=== PATIENT | male | born 1995 | race Caucasian/White ===

== ENCOUNTER 2024-01-13 16:18 | Inpatient (IN) | payer MEDICAID ==
[~2024-01-13] VITALS: Ht 165.1 cm; Wt 60.0 kg
[2024-01-13 18:01] LABS: BASOPHILS # (AUTO) 0.1 X10'3 (0-0.2); BASOPHILS % (AUTO) 0.5 % (0-1); EOSINOPHILS % (AUTO) 0.2 % (0-6); HEMATOCRIT 39.1 % (42.0-52.0); HEMOGLOBIN 13.4 g/dl (14.0-17.9); LYMPHOCYTES # (AUTO) 1.8 X10'3 (1.1-4.8); LYMPHOCYTES % (AUTO) 17.4 % (21-51); MEAN CORPUSCULAR HEMOGLOBIN 31.5 PG (27.0-31.0); MEAN CORPUSCULAR HGB CONC 34.1 g/dL (33.0-36.5); MEAN CORPUSCULAR VOLUME 92.2 FL (78-98); MEAN PLATELET VOLUME 8.4 FL (7.4-10.4); MONOCYTES # (AUTO) 0.7 X10'3 (0-0.9); MONOCYTES % (AUTO) 6.4 % (2-12); NEUTROPHILS # (AUTO) 7.8 X10'3 (1.8-7.7); NEUTROPHILS % (AUTO) 75.5 % (42-75); PLATELET COUNT 283 X10'3 (140-440); RED BLOOD COUNT 4.24 X10'6 (4.70-6.10); RED CELL DISTRIBUTION WIDTH 13.3 % (11.5-14.5); WHITE BLOOD COUNT 10.3 X10'3 (4.5-11.0)
[2024-01-13 18:14] LABS: ALANINE AMINOTRANSFERASE 14 U/L (12-78); ALBUMIN 4.4 G/DL (3.4-5.0); ALBUMIN/GLOBULIN RATIO 1.6 (1.1-1.5); ALKALINE PHOSPHATASE 70 IU/L (46-116); ANION GAP 8 (8-16); ASPARTATE AMINO TRANSFERASE 15 U/L (10-37); BILIRUBIN,TOTAL 0.6 MG/DL (0.1-1.0); BLOOD UREA NITROGEN 9 MG/DL (7-18); BUN/CREATININE RATIO 10.2 (10.0-20.0); CALCIUM 8.8 MG/DL (8.5-10.1); CHLORIDE 104 MMOL/L (99-107); CREATININE 0.88 MG/DL (0.60-1.10); GLUCOSE 104 MG/DL (70-104); LIPASE 32 U/L (16-77); POTASSIUM 3.5 MMOL/L (3.5-5.1); SODIUM 139 MMOL/L (135-145); TOTAL CARBON DIOXIDE 27.4 MMOL/L (24-32); TOTAL PROTEIN 7.2 G/DL (6.4-8.2); eCRCL 106 ML/MIN; eGFR > 90 ML/MIN
[2024-01-13 18:18] LABS: BILIRUBIN,URINE NEGATIVE (Neg); CLARITY,URINE CLEAR (Clear); COLOR,URINE YELLOW (Yellow); GLUCOSE, URINE NEGATIVE (Neg); KETONES,URINE NEGATIVE (Neg); LEUKOCYTE ESTERASE ,URINE TRACE (Neg); NITRITES, URINE NEGATIVE (Neg); OCCULT BLOOD,URINE MODERATE (Neg); PH,URINE 5.5 (4.8-8.0); PROTEIN,URINE 30 mg/dl (Neg); UROBILINOGEN,URINE 0.2 E.U/dL (0.2-1.0)
[2024-01-13 18:22] LABS: UA COLLECTION TYPE CLN CATCH MIDSTREAM
[2024-01-13 18:32] LABS: WBC,URINE 30-50 /HPF (0-4)
[2024-01-13 18:33] LABS: BACTERIA,URINE FEW /HPF (Neg); MUCUS STRANDS FEW /LPF (Neg); SQUAMOUS EPITHELIAL CELL,UR FEW /LPF (FEW); WBC CLUMPS,URINE FEW /HPF (NEGATIVE)
[2024-01-13] MEDS: normal saline 1000ml 1,000 ML IV ONE (20:50)
[2024-01-13] MEDS: ketorolac trometh 15mg/ml vial 15 MG/ML ML IV ONE (20:51)
[2024-01-13] MEDS: CefTRIAXone 2gm/D5W 50ml BAG 50 ML IV ONE (21:59)
[2024-01-13] MEDS ORDERED: mag hydrox/Alum hydrox/simeth 30ml oral suspension PO PRN (23:55)
[2024-01-13] MEDS ORDERED: potassium Cl 40MEQ/1/2NS 520ml 520 ML IV PRN (23:55)
[2024-01-13] MEDS ORDERED: magnesium sulf-water 2g/50mL 50 ML IV PRN (23:55)
[2024-01-13] MEDS ORDERED: magnesium sulf-water 4G/100mL 100 ML IV PRN (23:55)
[2024-01-13] MEDS ORDERED: magnesium Cl slow-release 64mg tablet PO PRN (23:55)
[2024-01-13] MEDS ORDERED: magnesium hydroxide 30ml (MOM) UD suspension PO PRN (23:55)
[2024-01-13] MEDS ORDERED: potassium Cl 20 mEq SR tablet PO PRN ×2 (23:55)
[2024-01-13] MEDS ORDERED: acetaminophen 325mg tablet PO PRN (23:55)
[2024-01-14] VITALS (18 sets, daily range): BP systolic 88–112; BP diastolic 47–67; PULSE 53–78; RESP 12–25; TEMP 98–99.5; O2SAT 95–100
[2024-01-14] MEDS: normal saline 1000ml 1,000 ML IV SCH (00:34)
[2024-01-14 06:53] LABS: BASOPHILS # (AUTO) 0.1 X10'3 (0-0.2); BASOPHILS % (AUTO) 0.6 % (0-1); EOSINOPHILS % (AUTO) 0.1 % (0-6); HEMATOCRIT 39.2 % (42.0-52.0); HEMOGLOBIN 13.3 g/dl (14.0-17.9); LYMPHOCYTES # (AUTO) 1.7 X10'3 (1.1-4.8); LYMPHOCYTES % (AUTO) 19.3 % (21-51); MEAN CORPUSCULAR HEMOGLOBIN 31.5 PG (27.0-31.0); MEAN CORPUSCULAR HGB CONC 33.9 g/dL (33.0-36.5); MEAN CORPUSCULAR VOLUME 92.8 FL (78-98); MEAN PLATELET VOLUME 8.3 FL (7.4-10.4); MONOCYTES # (AUTO) 0.3 X10'3 (0-0.9); MONOCYTES % (AUTO) 3.4 % (2-12); NEUTROPHILS # (AUTO) 6.6 X10'3 (1.8-7.7); NEUTROPHILS % (AUTO) 76.6 % (42-75); PLATELET COUNT 283 X10'3 (140-440); RED BLOOD COUNT 4.23 X10'6 (4.70-6.10); RED CELL DISTRIBUTION WIDTH 13.9 % (11.5-14.5); WHITE BLOOD COUNT 8.6 X10'3 (4.5-11.0)
[2024-01-14 07:06] LABS: ANION GAP 6 (8-16); CHLORIDE 109 MMOL/L (99-107); GLUCOSE 106 MG/DL (70-104); POTASSIUM 4.2 MMOL/L (3.5-5.1); SODIUM 143 MMOL/L (135-145); TOTAL CARBON DIOXIDE 28.2 MMOL/L (24-32)
[2024-01-14 07:07] LABS: ALANINE AMINOTRANSFERASE 13 U/L (12-78); ALBUMIN 3.9 G/DL (3.4-5.0); ALBUMIN/GLOBULIN RATIO 1.3 (1.1-1.5); ALKALINE PHOSPHATASE 63 IU/L (46-116); ASPARTATE AMINO TRANSFERASE 15 U/L (10-37); BILIRUBIN,TOTAL 0.6 MG/DL (0.1-1.0); BLOOD UREA NITROGEN 5 MG/DL (7-18); BUN/CREATININE RATIO 6.5 (10.0-20.0); CALCIUM 8.6 MG/DL (8.5-10.1); CREATININE 0.77 MG/DL (0.60-1.10); MAGNESIUM 2.2 MG/DL (1.5-2.4); TOTAL PROTEIN 6.8 G/DL (6.4-8.2); eCRCL 121 ML/MIN; eGFR > 90 ML/MIN
[2024-01-14 07:15] LABS: PHOSPHORUS 2.9 MG/DL (2.3-4.5); URIC ACID 4.1 MG/DL (3.5-7.2)
[2024-01-14] MEDS: docusate sod 100mg capsule PO SCH (08:50)
[2024-01-14] MEDS: K and/or MAG REPLACEMENT MC SCH (08:54)
[2024-01-14] MEDS ORDERED: ondansetron/PF 4mg/2ml inj IV PRN (12:15)
[2024-01-14] MEDS ORDERED: meperidine/PF 25mg/ml syringe IV PRN (12:15)
[2024-01-14] MEDS ORDERED: morphine 4 MG/ML inj SYRINge IV PRN (12:15)
[2024-01-14] MEDS ORDERED: iohexol 300 MG/1 ML 50ml polymer ONE (12:15)
[2024-01-14] MEDS ORDERED: morphine 2 MG/ML inj. syringe IV PRN (12:15)
[2024-01-14] MEDS ORDERED: hydrALAZINE 20mg/ml inj. IV PRN (12:15)
[2024-01-14] MEDS: ringers solution, lacted 1,000 ML IV SCH (12:15)
[2024-01-14] MEDS ORDERED: labetalol 20mg/4ml (5mg/ml) syringe IV PRN (12:15)
[2024-01-14] MEDS ORDERED: HYDROmorphone/PF 0.2 MG/ML SYRINGE IV PRN ×2 (12:15)
[2024-01-14] MEDS ORDERED: fentaNYL/PF 50MCG/1 ML 2ML syringe ONE (12:21)
[2024-01-14] MEDS ORDERED: midazolam 1 mg/ML 2ml injection ONE (12:22)
[2024-01-14] MEDS ORDERED: ondansetron/PF 4mg/2ml inj ONE (12:34)
[2024-01-14] MEDS ORDERED: LIDOcaine 2% (20mg/ml) 5ml vial ONE (12:34)
[2024-01-14] MEDS ORDERED: dexamethasone sod phosphate 4mg/ml inj. ONE (12:34)
[2024-01-14] MEDS ORDERED: propofol inj 20 ML IV ONE ×2 (12:34)
[2024-01-14] MEDS: acetaminophen 1,000mg/100ml IV 100 ML IV ONE (13:45)
[2024-01-14] MEDS: HYDROcodone/acetaminophen 5mg/325mg tablet PO PRN (15:29)
[2024-01-14] MEDS: ondansetron/PF 4mg/2ml inj IV PRN (16:31)
[2024-01-14] MEDS: ketorolac trometh 15mg/ml vial 15 MG/ML ML IV ONE (16:33)
[2024-01-14] MEDS: metoclopramide 5 mg/ml inj IV ONE (17:20)
[2024-01-14] MEDS: morphine 2 MG/ML inj. syringe IV PRN (18:05)
[2024-01-14] MEDS ORDERED: ketorolac trometh 15mg/ml vial 15 MG/ML ML IV PRN (18:35)
[2024-01-14] MEDS: proCHLORperazine 10 MG/2 ml inj IV PRN (18:54)
[2024-01-14] MEDS: tamsulosin 0.4mg capsule PO SCH (22:06)
[2024-01-14] MEDS: CefTRIAXone/D5W-Rocephin 1gm 50 ML IV SCH (22:43)
[2024-01-15 06:00] VITALS: BP 102/53; PULSE 70; RESP 18; TEMP 98.4; O2SAT 98
[2024-01-15 06:14] LABS: BASOPHILS % (AUTO) 0.1 % (0-1); EOSINOPHILS % (AUTO) 0 % (0-6); HEMATOCRIT 35.5 % (42.0-52.0); LYMPHOCYTES # (AUTO) 1.3 X10'3 (1.1-4.8); LYMPHOCYTES % (AUTO) 10.8 % (21-51); MEAN CORPUSCULAR HEMOGLOBIN 31.5 PG (27.0-31.0); MEAN CORPUSCULAR HGB CONC 33.8 g/dL (33.0-36.5); MEAN CORPUSCULAR VOLUME 93.3 FL (78-98); MEAN PLATELET VOLUME 9.1 FL (7.4-10.4); MONOCYTES # (AUTO) 0.6 X10'3 (0-0.9); MONOCYTES % (AUTO) 4.8 % (2-12); NEUTROPHILS # (AUTO) 9.9 X10'3 (1.8-7.7); NEUTROPHILS % (AUTO) 84.3 % (42-75); PLATELET COUNT 261 X10'3 (140-440); RED BLOOD COUNT 3.81 X10'6 (4.70-6.10); WHITE BLOOD COUNT 11.7 X10'3 (4.5-11.0)
[2024-01-15 06:19] LABS: ALANINE AMINOTRANSFERASE 9 U/L (12-78); ALBUMIN 3.5 G/DL (3.4-5.0); ALBUMIN/GLOBULIN RATIO 1.3 (1.1-1.5); ALKALINE PHOSPHATASE 51 IU/L (46-116); ANION GAP 7 (8-16); ASPARTATE AMINO TRANSFERASE 11 U/L (10-37); BILIRUBIN,TOTAL 0.5 MG/DL (0.1-1.0); BLOOD UREA NITROGEN 11 MG/DL (7-18); BUN/CREATININE RATIO 14.1 (10.0-20.0); CALCIUM 8.3 MG/DL (8.5-10.1); CHLORIDE 107 MMOL/L (99-107); CREATININE 0.78 MG/DL (0.60-1.10); GLUCOSE 125 MG/DL (70-104); MAGNESIUM 1.9 MG/DL (1.5-2.4); POTASSIUM 4.2 MMOL/L (3.5-5.1); SODIUM 139 MMOL/L (135-145); TOTAL CARBON DIOXIDE 25.3 MMOL/L (24-32); TOTAL PROTEIN 6.1 G/DL (6.4-8.2); eCRCL 120 ML/MIN; eGFR > 90 ML/MIN
[2024-01-15 07:00] VITALS: RESP 18; O2SAT 98
[2024-01-15] MEDS ORDERED: tamsulosin capsule PO (12:09)
[2024-01-15] MEDS ORDERED: ONDA-243 PO (12:09)
[2024-01-15] MEDS ORDERED: IBUP-1985 PO (12:24)
[2024-01-15] MEDS ORDERED: PANT40TA54 PO (12:25)
== END 2024-01-15 12:54 | disposition home or self-care (01) | DRG 463 ==
LOC: ER 16:19 → UNDOADMIN 23:57 → ED HOLD 23:57 → ORTHO 4S 01-14 00:57 → ED HOLD 01-14 00:57 → SUR 3N 01-14 17:46 → ORTHO 4S 01-14 17:46 → UNDODISIN 01-15 12:54
PROVIDERS: ADMIT Internal Medicine Critical Care Medicine; ATTEND Family Medicine
PROC: BT1F1ZZ Fluoroscopy of Left Kidney, Ureter and Bladder using Low Osmolar Contrast (ICD-10-PCS; 2024-01-14)
PROC: 0T778DZ Dilation of Left Ureter with Intraluminal Device, Via Natural or Artificial Opening Endoscopic (ICD-10-PCS; principal; 2024-01-14 12:21)
DX: N13.6 Pyonephrosis (principal); Z79.899 Other long term (current) drug therapy
CPT/HCPCS: 36415; 74176; 76000; 80053; 81001; 82948; 83605; 83690; 83735; 84100; 84145; 84550; 85025; 85651; 87040; 87081; 87088; 96365; 96375; 99285; A4618; C1769; C2617; G0378; J0131; J0696; J0780; J1100; J1885; J2250; J2270; J2405; J2704; J2765; J3010; J3490; J7030; Q9967

== ENCOUNTER 2024-11-27 09:37 | Day surgery (SDC) | payer MEDICAID ==
[2024-11-20 12:52] LABS: MEAN PLATELET VOLUME 8.2 FL (7.4-10.4); PRE OP HEMATOCRIT 42.1 % (42.0-52.0); PRE OP HEMOGLOBIN 14.4 g/dL (14.0-17.9); PRE OP PLATELET COUNT 401 X10'3 (140-440); PRE OP WHITE BLOOD COUNT 8.2 10'3 (4.8-10.8); RED CELL DISTRIBUTION WIDTH 13.9 % (11.5-14.5)
[2024-11-20 13:00] LABS: CREATININE 0.70 MG/DL (0.60-1.10); PRE OP ALT 18 U/L (30-65); PRE OP ANION GAP 5 (8-16); PRE OP AST 17 U/L (10-37); PRE OP BILIRUB, TOTAL 0.4 MG/DL (0.0-1.0); PRE OP GLUCOSE 68 MG/DL (70-104); PRE OP POTASSIUM 4.5 MMOL/L (3.4-5.1); PRE OP SODIUM 139 MMOL/L (135-145); TOTAL CARBON DIOXIDE 34.2 MMOL/L (24-32); eGFR > 90 ML/MIN
[2024-11-27] VITALS (11 sets, daily range): BP systolic 84–119; BP diastolic 41–74; PULSE 53–76; RESP 14–27; TEMP 98.6; O2SAT 98–100
[~2024-11-27] VITALS: Ht 167.6 cm; Wt 58.2 kg
[2024-11-27] MEDS: ceFAZolin 2gm/dext,iso 50mL 50 ML IV ONE (05:30)
[~2024-11-27 09:37] MED LIST: NO HOME MEDS
[2024-11-27] MEDS ORDERED: BUPIVAcaine 2.5mg/ml inj 50ml vial (contains preservative) ONE (10:28)
[2024-11-27] MEDS ORDERED: LIDOcaine 1% 30ml preserv. free vial ONE (10:28)
[2024-11-27] MEDS: ringers solution, lacted 1,000 ML IV SCH (10:36)
[2024-11-27] MEDS ORDERED: fentaNYL/PF 50MCG/1 ML 2ML syringe ONE (11:54)
[2024-11-27] MEDS ORDERED: midazolam 1 mg/ML 2ml injection ONE (12:00)
[2024-11-27] MEDS ORDERED: LIDOcaine 2% (20mg/ml) 5ml vial ONE (12:10)
[2024-11-27] MEDS ORDERED: dexamethasone sod phosphate 4mg/ml inj. ONE (12:10)
[2024-11-27] MEDS ORDERED: ondansetron/PF 4mg/2ml inj ONE (12:10)
[2024-11-27] MEDS ORDERED: propofol inj 20 ML IV ONE (12:10)
[2024-11-27] MEDS: BUPIVAcaine/PF 2.5 mg/ml (0.25%) 30ml vial IJ ONE (12:18)
[2024-11-27] MEDS: LIDOcaine 1% 30ml preserv. free vial IJ ONE (12:19)
[2024-11-27] MEDS ORDERED: ondansetron/PF 4mg/2ml inj IV PRN (13:10)
[2024-11-27] MEDS ORDERED: labetalol 20mg/4ml (5mg/ml) syringe IV PRN (13:10)
[2024-11-27] MEDS ORDERED: HYDROmorphone/PF 0.2 MG/ML SYRINGE IV PRN ×2 (13:10)
[2024-11-27] MEDS ORDERED: ringers solution, lacted 1,000 ML IV SCH (13:10)
[2024-11-27] MEDS ORDERED: hydrALAZINE 20mg/ml inj. IV PRN (13:10)
[2024-11-27] MEDS ORDERED: acetaminophen 1,000mg/100ml IV 100 ML IV PRN (13:10)
[2024-11-27] MEDS ORDERED: morphine 4 MG/ML inj SYRINge IV PRN (13:10)
[2024-11-27] MEDS ORDERED: HYDROcodone/acetaminophen 5mg/325mg tablet PO PRN (13:20)
--- NOTE | 2024-11-27 13:25 | OPERATIVE REPORT ---
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 Complications None Prosthetics\Implants used: None Estimated Blood Loss: 10 cc Specimen Removed: Subcutaneous tumor of the right scalp at the base of the skull/right posterior ear, most consistent with epidermal inclusion cyst Description of Procedure: After informed consent was obtained, the patient was placed in comfortable position with the head supported. The scalp was prepped and draped in the usual sterile fashion at a visible and palpable mass at the base of the skull behind the right ear. Local anesthetic was infiltrated and an incision was made over the midportion of the mass. Mass appeared to be a cyst and there was rupture of the cyst wall and small amount of spillage of cheesy contents consistent with an epidermal inclusion cyst. The cyst was then sharply and bluntly dissected away from the surrounding tissue; during mobilization, again, there was partial rupture of the cyst, with the release of characteristic keratinous material confirming the diagnosis of an epidermal inclusion cyst. All cyst contents and capsule were meticulously removed and passed off the field as specimen. Following excision, redundant skin was noted due to previous stretching by the mass. Proximally half of this redundant skin was resected to prevent dog-ear formation and promote optimal wound healing. Flap coverage was performed, mobilizing the remaining local tissue for tension free closure. To minimize the space and optimize tissue apposition, interrupted quilting sutures with 3-0 Vicryl were used between the subcutaneous layer and underlying tissue. This was followed by interrupted simple and horizontal mattress sutures in the skin layer, using fine monofilament suture. Hemostasis was confirmed prior to closure. No drains were deemed necessary. A sterile pressure dressing was applied to the surgical site. Patient was awakened and taken to the postanesthesia care unit in stable condition. Counts repoted as correct: Yes JAKUB ARECHIGA MD Nov 27, 2024 13:25
== END 2024-11-27 14:27 | disposition home or self-care (01) ==
LOC: PAS 09:37
PROVIDERS: ATTEND Surgery
DX: D49.2 Neoplasm of unspecified behavior of bone, soft tissue, and skin (principal); L72.0 Epidermal cyst; Z79.899 Other long term (current) drug therapy; Z98.890 Other specified postprocedural states; Z95.5 Presence of coronary angioplasty implant and graft; Z87.442 Personal history of urinary calculi
CPT/HCPCS: 11424; 36415; 80053; 82948; 85025; J1100; J2003; J2250; J2405; J2704; J3010; J3490; J7030; J7120; Z7506; Z7508; Z7512; A4215; A4618; A7000